=== PATIENT | male | born 1995 | race Hispanic/Latino ===

== ENCOUNTER 2020-06-16 08:11 | Emergency (ER) | payer BC, OTHER ==
[2020-06-16] MEDS ORDERED: Ketorolac 30 MG/ML SDV IM ONE (08:33)
--- NOTE | 2020-06-16 08:36 | EDM.PDOC ---
ED HPI GENERAL MEDICAL PROBLEM - General Chief Complaint: Upper Extremity Injury/Pain Stated Complaint: LEFT SHOULDER INJURY Time Seen by Provider: 06/16/20 08:12 Source of Information: Reports: Patient History Limitations: Reports: No Limitations - History of Present Illness INITIAL COMMENTS - FREE TEXT/NARRATIVE: 24M presents for L shoulder pain following a lifting injury yesterday. Was lifting a heavy trash can when he heard and felt a "tearing" "pop" sensation. "felt like something ripping". Notes limited ability to lift at the shoulder w/ accompanying pain. - Related Data Allergies Allergy/AdvReac Type Severity Reaction Status Date / Time No Known Allergies Allergy Verified 09/15/18 08:18 Home Meds: Home Meds . [No Known Home Meds] 09/11/18 [History] Past Medical History - Past Health History Medical/Surgical History: Denies Medical/Surgical History - Infectious Disease History Infectious Disease History: Reports: None Social & Family History - Family History Family Medical History: Noncontributory - Caffeine Use Caffeine Use: Reports: Energy Drinks, Soda Review of Systems - Review of Systems Review Of Systems: Comprehensive ROS is negative, except as noted in HPI. ED EXAM, GENERAL - Physical Exam Exam: See Below Exam Limited By: No Limitations General Appearance: Alert, WD/WN, No Apparent Distress Head: Atraumatic, Normocephalic Respiratory/Chest: No Respiratory Distress Cardiovascular: Normal Peripheral Pulses Extremities: Other (mild TTP of ant/post L AC joint, no gross deformities noted, limited active abduction of L shoulder) Neurological: Alert Psychiatric: Normal Affect, Normal Mood Skin Exam: Warm, Dry Course - Orders/Labs/Meds Meds: Medications Discontinued Medications Generic Name Dose Route Start Last Admin Trade Name Freq PRN Reason Stop Dose Admin Ketorolac Tromethamine 30 mg 06/16/20 08:33 Toradol IM 06/16/20 08:34 ONETIME ONE - Re-Assessments/Exams Free Text/Narrative Re-Assessment/Exam: 06/16/20 08:35 H&P consistent with rotator cuff injury; will get XR to r/o osseous abnormality, will give toradol. Will likely d/c with sling and orthopedic f/u for MRI/definitive diagnosis 06/16/20 09:23 XR imaging is unremarkable for osseous injury. High suspicion of rotator cuff injury. Will give f/u with PMD here for MRI referral. Will give rx for motrin 600mg for analgesia Departure - Departure Time of Disposition: 09:24 Disposition: Home, Self-Care 01 Condition: Good Clinical Impression: Rotator cuff arthropathy of left shoulder - Discharge Information Instructions: Rotator Cuff Tear Referrals: PMD, PMD [Other] Forms: ED Department Discharge Additional Instructions: The following information is given to patients seen in the emergency department who are being discharged to home. This information is to outline your options for follow-up care. We provide all patients seen in our emergency department with a follow-up referral. The need for follow-up, as well as the timing and circumstances, are variable depending upon the specifics of your emergency department visit. If you don't have a primary care physician on staff, we will provide you with a referral. We always advise you to contact your personal physician following an emergency department visit to inform them of the circumstance of the visit and for follow-up with them and/or the need for any referrals to a consulting specialist. The emergency department will also refer you to a specialist when appropriate. This referral assures that you have the opportunity for follow-up care with a specialist. All of these measure are taken in an effort to provide you with optimal care, which includes your follow-up. Under all circumstances we always encourage you to contact your private physician who remains a resource for coordinating your care. When calling for follow-up care, please make the office aware that this follow-up is from your recent emergency room visit. If for any reason you are refused follow-up, please contact the [facility] Emergency Department at and asked to speak to the emergency department charge nurse.
--- NOTE | 2020-06-16 09:22 | CR ---
INDICATION: Shoulder injury COMPARISON: none TECHNIQUE: Three-view left shoulder FINDINGS: The bones are anatomically aligned. There is no evidence of fracture, erosion or intrinsic bone lesion. The soft tissues appear normal. IMPRESSION: Negative left shoulder. Dictated by Charlie Restrepo MD @ Jun 16 2020 9:20AM Signed by Dr. Charlie Restrepo @ Jun 16 2020 9:21AM
== END 2020-06-16 09:49 | disposition home or self-care (01) ==
LOC: MW.ED 08:11
DX: M12.811 Other specific arthropathies, not elsewhere classified, right shoulder (principal)
CPT/HCPCS: 73030; 96372; 99283; J1885; 99282

== ENCOUNTER 2021-01-12 08:05 | Emergency (ER) | payer BC ==
--- NOTE | 2021-01-12 08:24 | EDM.PDOC ---
ED HPI GENERAL MEDICAL PROBLEM - General Chief Complaint: ENT Problem Stated Complaint: LEFT EAR PROBLEM Time Seen by Provider: 01/12/21 08:09 - History of Present Illness INITIAL COMMENTS - FREE TEXT/NARRATIVE: History of present illness: [] Started having pain in the left ear yesterday it feels like it is full and there is a squishy water sound. He uses cotton tip applicators to clean his ears. He says his hearing is diminished he has pain when he moves his jaw. The patient's not febrile no systemic signs of illness and is not diabetic. Review of systems: As per history of present illness and below otherwise all systems reviewed and negative. Past medical history: As per history of present illness and as reviewed below otherwise noncontributory. Surgical history: As per history of present illness and as reviewed below otherwise noncontributory. Social history: No reported history of drug or alcohol abuse. Family history: As per history of present illness and as reviewed below otherwise noncontributor y. Physical exam: Constitutional - well developed, well-nourished and in no acute distress HEENT -the patient has edema of the soft tissues of the left ear canal with near occlusion of the canal. The patient has impacted cerumen on the right. TMJ is not tender when he has a range of motion of the jaw. Dentition is not in terribly bad shape but he has a few caries to the been filled. He is missing tooth #31. Mastoids nontender or inflamed. Normocephalic, no evidence of trauma - external nose and mouth normal - no mass in neck and no JVD - mucosae moist EYES - full EOM, PERRL, no icterus - no evidence of inflammation, injection, or drainage Respiratory - no respiratory distress, equal bilateral expansion Musculoskeletal no gross deformity of long bones or joints - no tenderness, sw elling or edema Neurologic - Alert and oriented times four - CN II-XII grossly intact - motor sensory and coordination symmetrically normal Psychiatric - appropriate mood and affect with normal thought content Hematologic - No petechiae or purpura - mucosa appropriate color and sclera not pale - normal nail bed color and refill Integument - no rash or evidence of trauma - normal turgor Diagnostics: [] Therapeutics: [] Impression: [] Plan: [] Definitive disposition and diagnosis as appropriate pending reevaluation and review of above. L ear Pain Score (Numeric/FACES): 8 - Related Data Allergies Allergy/AdvReac Type Severity Reaction Status Date / Time No Known Allergies Allergy Verified 01/12/21 08:21 Home Meds: Home Meds . [No Known Home Meds] 01/12/21 [History] Past Medical History - Past Health History Medical/Surgical History: Denies Medical/Surgical History - Infectious Disease History Infectious Disease History: Reports: None Social & Family History - Family History Family Medical History: No Pertinent Family History - Caffeine Use Caffeine Use: Reports: None ED ROS GENERAL - Review of Systems Review Of Systems: Comprehensive ROS is negative, except as noted in HPI. ED EXAM, GENERAL - Physical Exam Exam: See Below Free Text/Narrative:: My physical exam is in the HPI Course - Vital Signs Text/Narrative:: atilio wick inserted without difficulty to the left ear Last Recorded V/S: Last Vital Signs Temp 35.5 C L 01/12/21 08:12 Pulse 112 H 01/12/21 08:12 Resp 20 01/12/21 08:12 BP 161/109 H 01/12/21 08:12 Pulse Ox 97 01/12/21 08:12 - Orders/Labs/Meds Orders: Active Orders 24 hr Category Date Time Status Hydrocort/Neomycin/Polymyxin B [Cortisporin Otic Susp] Med 01/12/21 12:00 Ordered 0.5 ml EARLF QID Departure - Departure Time of Disposition: 08:40 Disposition: Home, Self-Care 01 Condition: Good Clinical Impression: Otitis externa - Discharge Information Referrals: PCP,None [Primary Care Provider] - Forms: ED Department Discharge Additional Instructions: Never put cotton tip applicators or anything in your ear. When you feel your ear canals fall your hearing is diminished lay on one side and put peroxide in the other ear canal. After a few minutes or it stops bubbling gently irrigate out the ear with a bulb syringe of the type you used to suction the baby's nose. The water must be the same temperature as your scanner you will get dizzy and nauseated. After you do this daily for several days a large plug may come out of your ear and your hearing will be restored. For now we will use the drops in the affected area where the wick can carry the drops down into the swollen ear canal. That wick may fall out but she should be reexamined in a few days and it should be removed if it has not fallen out. The nearest ENT doctors in [facility]. The primary care doctors can manage this. [facility] - Primary Care [address] [place] [id number] [facility] [address] [place] [address] The following information is given to patients seen in the emergency department who are being discharged to home. This information is to outline your options for follow-up care. We provide all patients seen in our emergency department with a follow-up referral. The need for follow-up, as well as the timing and circumstances, are variable depending upon the specifics of your emergency department visit. If you don't have a primary care physician on staff, we will provide you with a referral. We always advise you to contact your personal physician following an emergency department visit to inform them of the circumstance of the visit and for follow-up with them and/or the need for any referrals to a consulting specialist. The emergency department will also refer you to a specialist when appropriate. This referral assures that you have the opportunity for follow-up care with a specialist. All of these measure are taken in an effort to provide you with optimal care, which includes your follow-up. Under all circumstances we always encourage you to contact your private physician who remains a resource for coordinating your care. When calling for follow-up care, please make the office aware that this follow-up is from your recent emergency room visit. If for any reason you are refused follow-up, please contact the [facility] Emergency Department at and asked to speak to the emergency department charge nurse. Sepsis Event Note (ED) - Focused Exam Vital Signs: Vital Signs Temp Pulse Resp BP Pulse Ox 01/12/21 08:12 35.5 C L 112 H 20 161/109 H 97 - My Orders Last 24 Hours: My Active Orders 01/12/21 12:00 Hydrocort/Neomycin/Polymyxin B [Cortisporin Otic Susp] 0.5 ml EARLF QID - Assessment/Plan Last 24 Hours: My Active Orders 01/12/21 12:00 Hydrocort/Neomycin/Polymyxin B [Cortisporin Otic Susp] 0.5 ml EARLF QID
[2021-01-12] MEDS ORDERED: Hydrocortisone/Neomycin/Polymyxin B Otic Susp 10 ML Bottle ONE (08:37)
[2021-01-12] MEDS ORDERED: Hydrocortisone/Neomycin/Polymyxin B Otic Susp 10 ML Bottle EARLF SCH (12:00)
== END 2021-01-12 08:53 | disposition home or self-care (01) ==
LOC: MW.ED 08:05
DX: H60.92 Unspecified otitis externa, left ear (principal)
CPT/HCPCS: 99282; A9270

== ENCOUNTER 2022-04-27 08:03 | Observation (INO) | payer SELFPAY ==
[2022-04-27] MEDS ORDERED: Lactated Ringers 1,000 ML IV ONE (08:14)
[2022-04-27 09:01] LABS: CORONAVIRUS COVID-19 NAA NEGATIVE (NEGATIVE); INFLUENZA A NAA NEGATIVE (NEGATIVE); INFLUENZA B NAA NEGATIVE (NEGATIVE)
[2022-04-27 10:06] LABS: CARBON DIOXIDE,CO2 24.4 mmol/L (21.0-32.0); POTASSIUM,K 4.4 mmol/L (3.5-5.1)
[2022-04-27] MEDS ORDERED: Iopamidol 755 MG/ML 500 ML Multipack Bottle IVPUSH STA (10:52)
[2022-04-27] MEDS ORDERED: Furosemide 40 MG/4 ML VIAL IVPUSH STA (12:04)
[2022-04-27] MEDS ORDERED: Ibuprofen 400 MG Tab PO PRN (12:42)
[2022-04-27] MEDS ORDERED: Albuterol/Ipratropium 3.0-0.5 MG/3 ML Neb Soln NEB PRN (12:42)
[2022-04-27] MEDS ORDERED: Ondansetron 4 MG/2 ML SDV IVPUSH PRN (12:42)
[2022-04-27 17:02] LABS: HEMOGLOBIN A1C 5.7 %
[2022-04-27] MEDS: Enoxaparin 40 MG/0.4 ML Syringe SUBCUT SCH (17:35)
[2022-04-27] MEDS: Furosemide 40 MG/4 ML VIAL IVPUSH SCH (21:17)
[2022-04-28] MEDS: Enoxaparin 40 MG/0.4 ML Syringe SUBCUT SCH (06:17)
[2022-04-28 07:09] LABS: CARBON DIOXIDE,CO2 26.9 mmol/L (21.0-32.0); POTASSIUM,K 3.8 mmol/L (3.5-5.1)
[2022-04-28] MEDS: Furosemide 40 MG/4 ML VIAL IVPUSH SCH (08:27)
== END 2022-04-28 18:50 | disposition home or self-care (01) ==
LOC: MW.ED 08:03 → MW.MS 12:12
PROVIDERS: ADMIT Internal Medicine; ATTEND Internal Medicine
DX: I11.0 Hypertensive heart disease with heart failure (principal); I50.9 Heart failure, unspecified; R00.0 Tachycardia, unspecified; I42.0 Dilated cardiomyopathy; E66.01 Morbid (severe) obesity due to excess calories; Z20.822 Contact with and (suspected) exposure to COVID-19; Z79.82 Long term (current) use of aspirin; Z79.899 Other long term (current) drug therapy; Z68.44 Body mass index [BMI] 60.0-69.9, adult
CPT/HCPCS: 0240U; 36415; 71045; 71275; 80053; 80061; 81003; 82044; 83036; 83735; 83880; 84100; 84443; 84484; 85025; 85379; 93005; 93306; 96372; 96374; 96376; 99291; G0378; J1650; J1940; Q9967

== ENCOUNTER 2023-01-13 14:02 | Emergency (ER) | payer BC ==
[2023-01-13] MEDS ORDERED: Acetaminophen/HYDROcodone 325-10 MG Tab PO ONE (17:21)
== END 2023-01-13 17:49 | disposition home or self-care (01) ==
LOC: MW.ED 14:02
DX: T14.8XXA Other injury of unspecified body region, initial encounter (principal)
CPT/HCPCS: 73030; 73070; 99283; A9270

== ENCOUNTER 2023-01-29 08:54 | Emergency (ER) | payer BC ==
[2023-01-29] MEDS ORDERED: Sodium Chloride 0.9% 10 ML Syringe FLUSH PRN (10:22)
[2023-01-29] MEDS ORDERED: Sodium Chloride 0.9% 2.5 ML Syringe FLUSH PRN (10:22)
[2023-01-29 11:03] LABS: CARBON DIOXIDE,CO2 23.3 mmol/L (21.0-32.0); HEMOGLOBIN A1C 5.9 %; POTASSIUM,K 4.9 mmol/L (3.5-5.1)
== END 2023-01-29 13:25 | disposition home or self-care (01) ==
LOC: MW.ED 08:54
DX: M79.604 Pain in right leg (principal); M79.605 Pain in left leg; R79.1 Abnormal coagulation profile; E88.09 Other disorders of plasma-protein metabolism, not elsewhere classified; R73.03 Prediabetes; I50.9 Heart failure, unspecified; J45.909 Unspecified asthma, uncomplicated; E66.9 Obesity, unspecified; Z68.44 Body mass index [BMI] 60.0-69.9, adult; Z79.899 Other long term (current) drug therapy
CPT/HCPCS: 36415; 71045; 80053; 81003; 83036; 83735; 83880; 85025; 93970; 99284; J3490

== ENCOUNTER 2023-07-07 09:09 | Emergency (ER) | payer SELFPAY ==
[2023-07-07 10:50] LABS: BASOPHILS PERCENT AUTO 0.1 % (0.0-1.5); EOSINOPHILS ABSOLUTE AUTO 0.2 K/uL (0.0-0.7); EOSINOPHILS PERCENT AUTO 1.5 % (0.0-7.0); HEMATOCRIT 41.9 % (38.0-50.0); HEMOGLOBIN 13.6 g/dL (13.0-17.0); LYMPHOCYTES ABSOLUTE AUTO 1.1 K/uL (0.6-2.4); LYMPHOCYTES PERCENT AUTO 10.2 % (16.0-40.0); MEAN CORPUSCULAR HEMOGLOBIN 27.1 pg (27.0-32.0); MEAN CORPUSCULAR HGB CONC 32.5 g/dL (31.0-37.0); MEAN CORPUSCULAR VOLUME 83.6 fL (80.0-98.0); MONOCYTES ABSOLUTE AUTO 0.7 K/uL (0.0-0.8); MONOCYTES PERCENT AUTO 6.4 % (0.0-15.0); NEUTROPHILS ABSOLUTE AUTO 8.6 K/uL (1.4-5.7); NEUTROPHILS PERCENT AUTO 81.8 % (48.0-80.0); NRBC ABSOLUTE 0 K/uL; PLATELET COUNT,PLT 426 K/uL (150-400); RED BLOOD CELL COUNT 5.01 M/uL (4.50-5.90); WHITE BLOOD CELL COUNT,WBC 10.55 K/uL (4.0-11.0)
[2023-07-07 11:02] LABS: APPEARANCE,URINE CLEAR; BILIRUBIN,URINE NEGATIVE (NEGATIVE); COLOR,URINE YELLOW; GLUCOSE,URINE NEGATIVE (NEGATIVE); KETONES,URINE NEGATIVE (NEGATIVE); LEUKOCYTE ESTERASE,URINE NEGATIVE (NEGATIVE); NITRITE,URINE NEGATIVE (NEGATIVE); OCCULT BLOOD,URINE TRACE-INTACT (NEGATIVE); PROTEIN,URINE NEGATIVE (NEGATIVE); UROBILINOGEN,URINE 0.2 EU/dL (<2.0)
[2023-07-07 11:20] LABS: A/G RATIO 0.6 (0.9-1.6); BILIRUBIN TOTAL 0.8 mg/dL (0.2-1.0); CALCIUM 8.5 mg/dL (8.5-10.1); CARBON DIOXIDE,CO2 28.3 mmol/L (21.0-32.0); CREATININE 0.8 mg/dL (0.8-1.3); EST CRCL DRUG DOSING (CG) 125.16 mL/min; PROTEIN TOTAL,TP 7.8 g/dL (6.4-8.2)
[2023-07-07 11:38] LABS: RBC,URINE 0-2 (0-2/HPF); WBC,URINE 0-2 (0-5/HPF)
[2023-07-07] MEDS ORDERED: Furosemide 40 MG/4 ML VIAL IVPUSH ONE (12:05)
[2023-07-07] MEDS ORDERED: Iopamidol 755 MG/ML 500 ML Multipack Bottle IVPUSH STA (12:53)
== END 2023-07-07 14:57 | disposition left against medical advice (07) ==
LOC: MW.ED 09:09 → UNDOADMIN 14:39 → MW.MS 14:39
DX: I50.9 Heart failure, unspecified (principal); E66.9 Obesity, unspecified; Z68.30 Body mass index [BMI] 30.0-30.9, adult; Z79.82 Long term (current) use of aspirin; Z72.0 Tobacco use; Z20.822 Contact with and (suspected) exposure to COVID-19
CPT/HCPCS: 36415; 71045; 71275; 80053; 81001; 83880; 84484; 85025; 85379; 87635; 93005; 96374; 99285; J1940; Q9967; U0002

== ENCOUNTER 2024-08-21 08:54 | Emergency (ER) | payer SELFPAY ==
[2024-08-21] MEDS ORDERED: Sodium Chloride 0.9% 10 ML Syringe FLUSH PRN (09:10)
[2024-08-21] MEDS ORDERED: Sodium Chloride 0.9% 2.5 ML Syringe FLUSH PRN (09:10)
[2024-08-21 09:45] LABS: BASOPHILS ABSOLUTE AUTO 0.04 K/uL (0.00-0.20); BASOPHILS PERCENT AUTO 0.3 % (0.0-1.0); EOSINOPHILS ABSOLUTE AUTO 0.14 K/uL (0.00-0.45); EOSINOPHILS PERCENT AUTO 1.2 % (0.0-6.0); HEMATOCRIT 44.7 % (42.0-52.0); HEMOGLOBIN 14.4 g/dL (14.0-18.0); IMMATURE GRAN ABSOLUTE AUTO 0.04 K/uL (0.00-0.05); IMMATURE GRAN PERCENT AUTO 0.3 % (0.0-0.4); LYMPHOCYTES ABSOLUTE AUTO 1.41 K/uL (1.00-4.80); LYMPHOCYTES PERCENT AUTO 11.6 % (24.0-44.0); MEAN CORPUSCULAR HEMOGLOBIN 26.6 pg (28.0-32.0); MEAN CORPUSCULAR HGB CONC 32.2 g/dL (32.0-36.0); MEAN CORPUSCULAR VOLUME 82.5 fL (83.0-99.0); MEAN PLATELET VOLUME 8.8 fL (9.4-12.4); MONOCYTES ABSOLUTE AUTO 0.89 K/uL (0.00-0.80); MONOCYTES PERCENT AUTO 7.3 % (0.0-8.0); NEUTROPHILS ABSOLUTE AUTO 9.63 K/uL (1.80-7.70); NEUTROPHILS PERCENT AUTO 79.3 % (41.0-71.0); PLATELET COUNT,PLT 397 K/uL (150-400); RED BLOOD CELL COUNT 5.42 M/uL (4.52-5.90); WHITE BLOOD CELL COUNT,WBC 12.15 K/uL (3.9-11.3)
[2024-08-21] MEDS: Sodium Chloride 0.9% 1,000 ML IV ONE (09:52)
[2024-08-21] MEDS: Acetaminophen 500 MG Tab PO ONE (09:54)
[2024-08-21] MEDS: Aspirin 81 MG Tab.Chew PO ONE (09:54)
[2024-08-21] MEDS: Furosemide 40 MG/4 ML VIAL IVPUSH ONE (10:22)
[2024-08-21 10:30] LABS: A/G RATIO 0.7 (0.9-1.6); ALBUMIN 3.4 g/dL (3.4-5.0); BILIRUBIN TOTAL 1.5 mg/dL (0.2-1.0); CARBON DIOXIDE,CO2 28.7 mmol/L (21.0-32.0); CREATININE 0.9 mg/dL (0.8-1.3); EST CRCL DRUG DOSING (CG) 110.27 mL/min; POTASSIUM,K 3.5 mmol/L (3.5-5.1); PROTEIN TOTAL,TP 8.4 g/dL (6.4-8.2); TSH ULTRASENSITIVE 1.21 uIU/mL (0.36-3.74)
[2024-08-21] MEDS: Iopamidol 755 MG/ML 500 ML Multipack Bottle IVPUSH STA (11:01)
== END 2024-08-21 13:59 | disposition left against medical advice (07) ==
LOC: MW.ED 08:54
DX: I21.4 Non-ST elevation (NSTEMI) myocardial infarction (principal); I50.9 Heart failure, unspecified; Z91.148 Patient's other noncompliance with medication regimen for other reason; Z53.29 Procedure and treatment not carried out because of patient's decision for other reasons; E66.9 Obesity, unspecified; Z75.8 Other problems related to medical facilities and other health care; Z79.82 Long term (current) use of aspirin; Z79.899 Other long term (current) drug therapy; Z68.44 Body mass index [BMI] 60.0-69.9, adult
CPT/HCPCS: 36415; 71045; 71275; 80053; 83605; 83880; 84443; 84484; 85025; 85379; 87040; 93005; 96374; 99285; A9270; J1940; J7030; Q9967; 93010